=== PATIENT | female | born 1980 | race Native Hawaiian/Other Pacific Islander ===

== ENCOUNTER 2019-03-27 22:10 | Emergency (ER) | payer SELFPAY ==
[2019-03-28 01:12] LABS: Hematocrit 38.2 % (30.3-42.9); Hemoglobin 12.6 gm/dl (10.1-14.3); Mean Corpuscular HGB Conc 33 % (30-34); Mean Corpuscular Volume 87 fl (79-97); Platelet Count 256 K/mm3 (140-440)
[2019-03-28 01:27] LABS: BUN/Creatinine Ratio 15; Blood Urea Nitrogen 15 mg/dL (7-17); Hemolysis Index 14
[2019-03-28 02:27] LABS: Band Neutrophils # (Manual) 3.2 K/mm3; Basophils % (Manual) 0 % (0.0-1.8); Eosinophils % (Manual) 0 % (0.0-4.3); Total Cells Counted 100
[2019-03-28 02:28] LABS: Stomatocytes Few
[2019-03-28 02:31] LABS: Platelet Estimate Consistent w Auto
[2019-03-28] MEDS ORDERED: SODIUM CHLORIDE 0.9% 1000 ML 1,000 ML IV ONE (06:36)
--- NOTE | 2019-03-28 06:48 | Emergency Department Report ---
ED General Adult HPI - General Chief complaint: GI Bleed Stated complaint: VOMITTING BLOOD, LEG PAIN Time Seen by Provider: 03/28/19 06:33 Source: patient, family Mode of arrival: Ambulatory Limitations: No Limitations - History of Present Illness Initial comments: Mrs. Pedraza is a 39 yo female with hx of right leg lymphedema who presents with moderately severe right lower extremity swelling for the past several days and redness. She's also been vomiting blood. Denies any chest or abdominal pain. Gradual onset of symptoms. Past medical history includes lymphedema in the right leg. She has history of vein surgery in the same leg. -: Gradual, days(s) (several) Location: right, lower extremity Radiation: non-radiation Severity scale (0 -10): 5 Quality: aching Consistency: constant Improves with: none Worsens with: movement, other (palpation) Associated Symptoms: other (hematemesis) - Related Data Previous Rx's Medication Instructions Recorded Last Taken Type Sulfamethoxazole/Trimethoprim 1 each PO BID 10 Days #20 tablet 03/28/19 Unknown Rx [Bactrim DS TAB] cephALEXin [Keflex] 500 mg PO QID 10 Days #40 capsule 03/28/19 Unknown Rx Allergies Allergy/AdvReac Type Severity Reaction Status Date / Time No Known Allergies Allergy Unverified 03/27/19 23:55 ED Review of Systems ROS: Stated complaint: VOMITTING BLOOD, LEG PAIN Other details as noted in HPI Comment: All other systems reviewed and negative Constitutional: denies: fever, malaise Gastrointestinal: nausea, vomiting Skin: rash, lesions, change in color ED Past Medical Hx - Past Medical History Previous Medical History?: Yes Additional medical history: Lymphadema right leg - Surgical History Past Surgical History?: Yes Additional Surgical History: Varicose vein surgery - Social History Smoking Status: Never Smoker Substance Use Type: None - Medications Home Medications: Home Medications Medication Instructions Recorded Confirmed Last Taken Type Sulfamethoxazole/Trimethoprim 1 each PO BID 10 Days #20 tablet 03/28/19 Unknown Rx [Bactrim DS TAB] cephALEXin [Keflex] 500 mg PO QID 10 Days #40 capsule 03/28/19 Unknown Rx ED Physical Exam - General Limitations: No Limitations General appearance: alert, in no apparent distress - Head Head exam: Present: atraumatic, normocephalic - Eye Eye exam: Present: normal appearance - ENT ENT exam: Present: mucous membranes moist - Neck Neck exam: Present: normal inspection - Respiratory Respiratory exam: Present: normal lung sounds bilaterally. Absent: respiratory distress, wheezes, rales, rhonchi - Cardiovascular Cardiovascular Exam: Present: normal rhythm, tachycardia, normal heart sounds. Absent: systolic murmur, diastolic murmur, rubs, gallop - GI/Abdominal GI/Abdominal exam: Present: soft, normal bowel sounds. Absent: distended, tenderness, guarding, rebound - Extremities Exam Extremities exam: Present: other (right leg globally edematous with confluent circumferential erythema from the knee to the foot 2+ DP pulse) - Back Exam Back exam: Present: normal inspection - Neurological Exam Neurological exam: Present: alert, oriented X3 - Psychiatric Psychiatric exam: Present: normal affect, normal mood - Skin Skin exam: Present: warm, dry, intact, normal color. Absent: rash ED Course Vital Signs 03/27/19 03/28/19 03/28/19 22:26 05:36 07:00 Temperature 98.3 F 98.2 F Pulse Rate 126 H 108 H Respiratory 20 18 18 Rate Blood Pressure 116/61 Blood Pressure 113/61 [Left] O2 Sat by Pulse 95 98 98 Oximetry 03/28/19 09:32 Temperature Pulse Rate 84 Respiratory 16 Rate Blood Pressure Blood Pressure 147/64 [Left] O2 Sat by Pulse 96 Oximetry ED Medical Decision Making - Lab Data Result diagrams: 03/28/19 00:00 03/28/19 00:00 Laboratory Results - last 24 hr 03/28/19 03/28/19 03/28/19 00:00 00:00 00:00 WBC 12.6 H RBC 4.40 Hgb 12.6 Hct 38.2 MCV 87 MCH 29 MCHC 33 RDW 14.0 Plt Count 256 Add Manual Diff Complete Total Counted 100 Seg Neutrophils % [employer] Apprentice Seg Neuts % (Manual) 69.0 Band Neutrophils % 25.0 Lymphocytes % (Manual) 4.0 L Reactive Lymphs % (Man) 0 Monocytes % (Manual) 2.0 Eosinophils % (Manual) 0 Basophils % (Manual) 0 Metamyelocytes % 0 Myelocytes % 0 Promyelocytes % 0 Blast Cells % 0 Nucleated RBC % Not Reportable Seg Neutrophils # Man 8.7 H Band Neutrophils # 3.2 Lymphocytes # (Manual) 0.5 L Abs React Lymphs (Man) 0.0 Monocytes # (Manual) 0.3 Eosinophils # (Manual) 0.0 Basophils # (Manual) 0.0 Metamyelocytes # 0.0 Myelocytes # 0.0 Promyelocytes # 0.0 Blast Cells # 0.0 WBC Morphology Not Reportable Hypersegmented Neuts Not Reportable Hyposegmented Neuts Not Reportable Hypogranular Neuts Not Reportable Smudge Cells Not Reportable Toxic Granulation Not Reportable Toxic Vacuolation Not Reportable Dohle Bodies Not Reportable Pelger-Huet Anomaly Not Reportable [place] Rods Not Reportable Platelet Estimate Consistent w auto Clumped Platelets Not Reportable Plt Clumps, EDTA Not Reportable Large Platelets Not Reportable Giant Platelets Not Reportable Platelet Satelliting Not Reportable Plt Morphology Comment Not Reportable RBC Morphology Not Reportable Dimorphic RBCs Not Reportable Polychromasia Not Reportable Hypochromasia Not Reportable Poikilocytosis Not Reportable Anisocytosis Not Reportable Microcytosis Not Reportable Macrocytosis Not Reportable Spherocytes Not Reportable Pappenheimer Bodies Not Reportable Sickle Cells Not Reportable Target Cells Not Reportable Tear Drop Cells Not Reportable Ovalocytes Not Reportable Stomatocytes Few Helmet Cells Not Reportable Kessler-Whitwell Bodies Not Reportable [place] Rings Not Reportable [place] Cells Not Reportable Bite Cells Not Reportable Crenated Cell Not Reportable Elliptocytes Not Reportable Acanthocytes (Spur) Not Reportable Rouleaux Not Reportable Hemoglobin C Crystals Not Reportable Schistocytes Not Reportable Malaria parasites Not Reportable Chuck Bodies Not Reportable Hem Pathologist Commnt No Sodium 140 Potassium 3.1 L Chloride 101.8 Carbon Dioxide 22 Anion Gap 19 BUN 15 Creatinine 1.0 Estimated GFR > 60 BUN/Creatinine Ratio 15 Glucose 144 H Calcium 9.0 HCG, Qual Negative 03/28/19 07:00 WBC RBC Hgb Hct MCV MCH MCHC RDW Plt Count Add Manual Diff Total Counted Seg Neutrophils % Seg Neuts % (Manual) Band Neutrophils % Lymphocytes % (Manual) Reactive Lymphs % (Man) Monocytes % (Manual) Eosinophils % (Manual) Basophils % (Manual) Metamyelocytes % Myelocytes % Promyelocytes % Blast Cells % Nucleated RBC % Seg Neutrophils # Man Band Neutrophils # Lymphocytes # (Manual) Abs React Lymphs (Man) Monocytes # (Manual) Eosinophils # (Manual) Basophils # (Manual) Metamyelocytes # Myelocytes # Promyelocytes # Blast Cells # WBC Morphology Hypersegmented Neuts Hyposegmented Neuts Hypogranular Neuts Smudge Cells Toxic Granulation Toxic Vacuolation Dohle Bodies Pelger-Huet Anomaly [place] Rods Platelet Estimate Clumped Platelets Plt Clumps, EDTA Large Platelets Giant Platelets Platelet Satelliting Plt Morphology Comment RBC Morphology Dimorphic RBCs Polychromasia Hypochromasia Poikilocytosis Anisocytosis Microcytosis Macrocytosis Spherocytes Pappenheimer Bodies Sickle Cells Target Cells Tear Drop Cells Ovalocytes Stomatocytes Helmet Cells Kessler-Whitwell Bodies [place] Rings [place] Cells Bite Cells Crenated Cell Elliptocytes Acanthocytes (Spur) Rouleaux Hemoglobin C Crystals Schistocytes Malaria parasites Chuck Bodies Hem Pathologist Commnt Sodium Potassium Chloride Carbon Dioxide Anion Gap BUN Creatinine Estimated GFR BUN/Creatinine Ratio Glucose Calcium HCG, Qual Negative - Radiology Data Radiology results: report reviewed RLE US no DVT CTA Chest no PE liver cysts - Medical Decision Making rle cellulitis rx: keflex, bactrim promethazine for hematemesis, no indication of GI bleed 911 emergency dispatcher used to obtain hx and provide discharge instructions Labs revealed elevated WBC 12 K and normal H&H No vomiting occurred in the ED Vital Signs - 24 hr 03/27/19 03/28/19 03/28/19 22:26 05:36 07:00 Temperature 98.3 F 98.2 F Pulse Rate 126 H 108 H Respiratory 20 18 18 Rate Blood Pressure 116/61 Blood Pressure 113/61 [Left] O2 Sat by Pulse 95 98 98 Oximetry 03/28/19 09:32 Temperature Pulse Rate 84 Respiratory 16 Rate Blood Pressure Blood Pressure 147/64 [Left] O2 Sat by Pulse 96 Oximetry Critical care attestation.: If time is entered above; I have spent that time in minutes in the direct care of this critically ill patient, excluding procedure time. ED Disposition Clinical Impression: Cellulitis of right lower extremity Disposition: DC-01 TO HOME OR SELFCARE Is pt being admited?: No Does the pt Need Aspirin: No Condition: Stable Instructions: Cellulitis (ED) Prescriptions: Sulfamethoxazole/Trimethoprim [Bactrim DS TAB] 1 each PO BID 10 Days #20 tablet cephALEXin [Keflex] 500 mg PO QID 10 Days #40 capsule Referrals: PRIMARY CARE, [Primary Care Provider] - 3-5 Days [facility] - 3-5 Days Forms: Accompanied Note, Work/School Release Form(ED)
--- NOTE | 2019-03-28 09:00 | Vascular Lab Report ---
DUPLEX DOPPLER LOWER EXTREMITY VEINS, RIGHT INDICATION / CLINICAL INFORMATION: red swollen leg. Lymphedema. TECHNIQUE: Duplex doppler imaging was performed through the veins of the right lower extremity using venous comp ression and other maneuvers. COMPARISON: None available. FINDINGS: COMMON FEMORAL VEIN: Negative. FEMORAL VEIN: Negative. POPLITEAL VEIN: Negative. CALF VEINS: Negative. ADDITIONAL FINDINGS: None. IMPRESSION: 1. No sonographic evidence for DVT in the right lower extremity. Signer Name: Melanie Oneil MD Signed: 03/28/2019 8:56 AM Workstation Name: [id number]
[2019-03-28 09:33] VITALS: BP 147/64
--- NOTE | 2019-03-28 09:35 | Cat Scan Report ---
CTA of the chest with 3D Reconstruction Indication: ,tachycardia swollen leg Technique: TECHNIQUE: Axial CT images were obtained through the chest after injection of 100 cc of Omnipaque 350 IV contrast. 3 plane MIP reconstructions were produced. All CT scans at this location are performed using CT dose reduction for ALARA by means of automated exposure control. COMPARISON: None Automatic exposure control was utilized in an attempt to reduce radiation dose. Findings: Pulmonary arteries: The main pulmonary artery and right and left pulmonary artery branches fill satis factorily with contrast. No pulmonary embolus is seen. Lungs: There is mild dependent atelectasis Mediastinum: Heart size is normal. No adenopathy is seen. Aorta: Normal in diameter. No dissection seen within limits of this exam. Small hypodensities in the liver are likely cysts. Impression: No pulmonary embolus is seen Signer Name: Mahamed Haji MD Signed: 03/28/2019 9:31 AM Workstation Name: [id number]
== END 2019-03-28 10:55 | disposition home or self-care (01) ==
LOC: ED 22:10
DX: L03.115 Cellulitis of right lower limb (principal); Z98.890 Other specified postprocedural states
CPT/HCPCS: 36415; 71275; 80048; 84703; 85007; 85025; 87040; 93971; 96365; 99284; J7030; Q9967